=== PATIENT | male | born 2000 | race Hispanic/Latino ===

== ENCOUNTER 2024-07-05 10:41 | Emergency (ER) | payer MEDICAID ==
[~2024-07-05] VITALS: Ht 160 cm; Wt 51.0 kg
[2024-07-05 10:48] VITALS: BP 128/88
[2024-07-05] MEDS ORDERED: KETOROLAC TROMETHAMINE 30 MG/ML SDV IM ONE (11:05)
[2024-07-05 11:44] VITALS: BP 126/87
[2024-07-05 11:45] VITALS: BP 128/85
[2024-07-05 12:00] VITALS: BP 122/81
[2024-07-05 12:15] VITALS: BP 116/86
[2024-07-05] MEDS ORDERED: MOTRIN400 MG/TAB PO (12:17)
[2024-07-05] MEDS ORDERED: FLEXERIL5 M1 PO (12:18)
[2024-07-05] MEDS ORDERED: VOLTAREN1%GEL TOP (12:18)
[2024-07-05 12:27] VITALS: BP 116/86
== END 2024-07-05 12:31 | disposition home or self-care (01) ==
LOC: ED 10:41
DX: S46.911A Strain of unspecified muscle, fascia and tendon at shoulder and upper arm level, right arm, initial encounter (principal); W19.XXXA Unspecified fall, initial encounter; Y99.0 Civilian activity done for income or pay